=== PATIENT | male | born 1995 | race Caucasian/White ===

== ENCOUNTER 2018-07-04 12:12 | Observation (INO) | payer OTHER ==
--- NOTE | 2018-07-04 13:13 | ED ---
Abdominal Pain/Male - HPI Summary HPI Summary: Pt is a 23 y/o male who presents to the ED c/o abdominal pain. He woke up at 3: 00 this morning with lower abdominal pain, rated 6/10 in severity. Since then the pain has been fluctuating in severity but is always present. Pt reports having a normal BM early this morning. He went to [facility] this morning and was sent here for having a high WBC of 15.6. Pt also notes mild congestion, but denies any fever, chills, N/V, cough, or urinary symptoms. He has a normal appetite. Pt has not taken any OTC medications for his sx. He denies a PSHx of appendectomy. - History of Current Complaint Chief Complaint: EDAbdPain Stated Complaint: ABD PAIN Time Seen by Provider: 07/04/18 12:57 Hx Obtained From: Patient Onset/Duration: Sudden Onset, Lasting Hours - 3:00 today, Still Present Timing: Intermittent Severity Currently: Moderate Pain Intensity: 6 Pain Scale Used: 0-10 Numeric Location: Other - lower abdomen Radiates: No Aggravating Factor(s): Nothing Alleviating Factor(s): Nothing Associated Signs And Symptoms: Negative: Cough, Urinary Symptoms, Decreased Appetite, Nausea, Vomiting - Allergies/Home Medications Allergies/Adverse Reactions: Allergies Allergy/AdvReac Type Severity Reaction Status Date / Time No Known Allergies Allergy Verified 07/04/18 12:20 PMH/Surg Hx/FS Hx/Imm Hx Endocrine/Hematology History: Denies: Hx Diabetes Cardiovascular History: Denies: Hx Hypertension Infectious Disease History: No Infectious Disease History: Denies: Traveled Outside the [place] in Last 30 Days - Family History Known Family History: Positive: Hypertension, Diabetes - Social History Alcohol Use: Weekly Hx Substance Use: No Substance Use Type: Reports: None Hx Tobacco Use: Yes Smoking Status (MU): Current Some Day Smoker - once a month Review of Systems Negative: Fever, Chills Positive: Other - mild congestion Negative: Cough Positive: Abdominal Pain. Negative: Vomiting, Nausea Genitourinary: Negative All Other Systems Reviewed And Are Negative: Yes Physical Exam - Summary Physical Exam Summary: GENERAL: Patient is a well-developed and nourished M who is lying comfortable in the stretcher. Patient is not in any acute respiratory distress. HEAD AND FACE: Normocephalic EYES: PERRLA, EOMI x 2. EARS: Hearing grossly intact. MOUTH: Oropharynx within normal limits. NECK: Supple, trachea is midline, no adenopathy, no JVD, no carotid bruit. CHEST: Symmetric, no tenderness at palpation LUNGS: Clear to auscultation bilaterally. No wheezing or crackles. CVS: Regular rate and rhythm, S1 and S2 present, no murmurs or gallops appreciated. ABDOMEN: Soft. Bowel sounds are normal. No abdominal abnormal pulsations. Mild tenderness to palpation inferior to umbilicus. EXTREMITIES: Full ROM in all major joints, no edema, no cyanosis or clubbing. NEURO: Alert and oriented x 3. No acute neurological deficits. Speech is normal and follows commands. SKIN: Dry and warm Triage Information Reviewed: Yes Vital Signs On Initial Exam: Initial Vitals Temp Pulse Resp BP Pulse Ox 97.9 F 83 20 155/83 98 07/04/18 12:18 07/04/18 12:18 07/04/18 12:18 07/04/18 12:18 07/04/18 12:18 Vital Signs Reviewed: Yes Diagnostics - Vital Signs Vital Signs Temp Pulse Resp BP Pulse Ox 07/04/18 12:18 97.9 F 83 20 155/83 98 - Laboratory Result Diagrams: 07/04/18 13:07 07/04/18 13:07 Lab Statement: Any lab studies that have been ordered have been reviewed, and results considered in the medical decision making process. - CT CT A/P CT Interpretation Completed By: Radiologist Summary of CT Findings: Findings consistent with appendicitis with thickening of the base of the cecum and a dilated appendix. ED physician reviewed radiology report. Re-Evaluation - Re-Evaluation First Eval Re-Evaluation Time: 16:00 Change: Unchanged Comment: Informed pt of CT results. Abdominal Pain Fem Course/Dx - Course Course Of Treatment: Pt is a 23 y/o male who presents to the ED c/o abdominal pain since 3:[address] A/P revealed Findings consistent with appendicitis with thickening of the base of the cecum and a dilated appendix. Workup was otherwise unremarkable. Pt will be admitted with a final dx of appendicitis. Case discussed with surgeon, Dr. Miguel. I discussed results with patient. The patient agrees with this plan. - Diagnoses Provider Diagnoses: Appendicitis - Provider Notifications Discussed Care Of Patient With: Claudy Miguel Time Discussed With Above Provider: 16:02 Instructed by Provider To: Admit As Inpatient - Dr. Miguel will see the pt in ED and admit him. Discharge - Sign-Out/Discharge Documenting (check all that apply): Patient Departure - Admit Patient Received Moderate/Deep Sedation with Procedure: No - Discharge Plan Condition: Stable Disposition: HOME - Billing Disposition and Condition Condition: STABLE Disposition: Home - Attestation Statements Document Initiated by Scribe: Yes Documenting Scribe: Beth Reyes Provider For Whom Vanessa is Documenting (Include Credential): Meche Peters MD Scribe Attestation: Beth Ortez, scribed for Meche Peters MD on 07/05/18 at 1815. Scribe Documentation Reviewed: Yes Provider Attestation: The documentation as recorded by the gloriaibBeth vu accurately reflects the service I personally performed and the decisions made by me, Meche Peters MD Status of Scribe Document: Viewed
[2018-07-04] MEDS ORDERED: NS 0.9% 1000 ML** 1,000 ML IV ONE (13:16)
[2018-07-04] MEDS ORDERED: Metoclopramide IV* 5 MG/ML 2 ML VIAL IV ONE (13:17)
[2018-07-04] MEDS ORDERED: Ketorolac INJ* 30 MG/ML 1 ML VIAL IV PUSH ONE (13:17)
[2018-07-04 13:27] LABS: ABS Basophils 0 10^3/ul (0-0.2); ABS Eosinophils 0.1 10^3/ul (0-0.6); ABS Lymphocytes 1.8 10^3/ul (1.0-4.8); ABS Monocytes 1.5 10^3/ul (0-0.8); ABS Neutrophils 10.7 10^3/ul (1.5-7.7); ABS Nucleated RBC 0 10^3/ul; Eosinophil % 0.9 %; Hematocrit 46 % (42-52); Hemoglobin 15.9 g/dl (14.0-18.0); Lymphocyte % 12.7 %; Mean Corpuscular HGB Conc 35 g/dl (31-36); Mean Corpuscular Hemoglobin 30 pg (27-31); Mean Corpuscular Volume 87 fL (80-94); Mean Platelet Volume 6.8 fL (7.4-10.4); Nucleated Red Blood Cells % 0.1; Platelet Count 241 10^3/ul (150-450); Red Blood Count 5.31 10^6/ul (4.00-5.40); Red Cell Distribution Width 14 % (10.5-15); White Blood Count 14.1 10^3/ul (3.5-10.8)
[2018-07-04 13:39] LABS: Albumin 4.7 g/dL (3.2-5.2); Albumin/Globulin Ratio 1.6 (1-3); BUN/Creatinine Ratio 24.7 (8-20); C Reactive Protein 9.49 mg/L (<8.01); Calcium 9.8 mg/dL (8.6-10.3); EGFR African American 118.2 (>60); EGFR Non-African American 97.7 (>60); Globulin 2.9 g/dL (2-4); Potassium 3.9 mmol/L (3.5-5.0); Total Bilirubin 0.9 mg/dL (0.2-1.0); Total Protein 7.6 g/dL (6.4-8.9)
[2018-07-04] MEDS ORDERED: Iohexol 300* (CONTRAST) 10 ML SDV IV ONE (14:26)
[2018-07-04 15:03] LABS: Urine Appearance Clear; Urine Bilirubin Negative (Negative); Urine Blood Negative (Negative); Urine Color Straw; Urine Glucose Negative (Negative); Urine Ketones Negative (Negative); Urine Nitrite Negative (Negative); Urine Protein Negative (Negative); Urine Specific Gravity 1.011 (1.010-1.030); Urine Urobilinogen Negative (Negative)
[2018-07-04] MEDS ORDERED: ceFOXitin 2 GM IVPREMIX* 2 GM/50 ML BAG ONE (17:23)
--- NOTE | 2018-07-04 18:02 | HP ---
CC: [facility] at [facility] * PREOPERATIVE HISTORY AND PHYSICAL: DATE OF ADMISSION: 07/04/18 This patient was seen in the [facility] Emergency Department on 07/04/18. ATTENDING SURGEON: Dr. Claudy Miguel * (dictated by Teagan Casper NP). CHIEF COMPLAINT: Right lower quadrant abdominal pain. HISTORY OF PRESENT ILLNESS: The patient is a 23-year-old male who is a [employer] student; he had the onset of lower abdominal pain that woke him up at 3 o'clock this morning. He went to [facility] where blood was drawn and an elevated white blood cell count was noted and he was sent to the emergency department. He denied any nausea, vomiting, diarrhea, or constipation. He had a formed bowel movement this morning; he denies any dysuria or fever or chills. He has had no previous surgery. CAT scan of the abdomen and pelvis in the emergency department was consistent with acute appendicitis, thickening at the base of the cecum and dilated appendix. White blood cell count was 14.1 and electrolytes were within normal limits. He last ate solid food yesterday and the last fluids were oral contrast for the CAT scan around 3 p.m. today. PAST MEDICAL HISTORY: Generally healthy. He states that in the past, he has had mildly elevated cholesterol, but has never had to take any prescription medications for that. He has never had a blood transfusion and no previous anesthesia complications. PAST SURGICAL HISTORY: Otis teeth extraction. MEDICATIONS: None. ALLERGIES: No known drug allergies. FAMILY HISTORY: Parents are alive and well. The family history is positive for diabetes and heart disease in his grandparents. 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 He occasionally smokes cigarettes. He drinks alcohol socially; his parents live in [place]. REVIEW OF SYSTEMS: Constitutional: No fevers, chills, excessive fatigue, or weight loss. Endocrine: No diabetes or thyroid disease. Respiratory: No shortness of breath or chronic cough. He does workout regularly. Cardiovascular: No anginal chest pain or palpitations. Gastrointestinal: As described in history of present illness. Genitourinary: No dysuria. Musculoskeletal: No joint or back pain. Neurologic: No headaches or blurred vision or history of seizures. General: No history of deep vein thrombosis or pulmonary embolism. No previous anesthesia complications. No blood transfusions. PHYSICAL EXAMINATION GENERAL SURVEY: The patient is a 23-year-old male, well developed, well nourished, in no acute distress. VITAL SIGNS: Height 5 feet 10 inches, weight 166 pounds, body mass index 23.8. Blood pressure 160/93, heart rate ranges from 80 to 100, respiratory rate 18, temperature 98.7, O2 saturation on room air 100%. HEENT: Benign. NECK: Supple. No cervical lymphadenopathy. LUNGS: Breath sounds bilaterally clear and equal. HEART: Regular rate and rhythm. No murmurs or rubs appreciated. ABDOMEN: Quiet, flat, nondistended. Tender in the right lower quadrant with deep palpation. No guarding. No peritoneal signs. No palpable masses or organomegaly. GENITALIA: Exam is deferred. RECTAL: Exam is deferred. EXTREMITIES: Full range of motion. NEUROLOGIC: Alert and oriented x3. SKIN: Warm, dry, intact. IMPRESSION: Acute appendicitis. PLAN: Per Dr. Miguel to the operating room this evening for laparoscopic appendectomy. The risks, benefits and usual postoperative recovery were discussed with the patient. His questions were answered and verbal consent was obtained. TIME SPENT: Sixty minutes with greater than 50% in [id number], history taking , patient counseling, and coordination of care. LAZARO CASPER NP [id number]/[facility] #: [id number] NIKA
[2018-07-04] MEDS ORDERED: Midazolam* 1 MG/ML 5 ML VIAL (5 MG) ONE (18:37)
[2018-07-04] MEDS ORDERED: Bupivacaine 0.5% W/EPI SDV* 30 ML VIAL ONE (18:39)
[2018-07-04] MEDS ORDERED: Rocuronium* 10 MG/ML VIAL ONE (18:42)
[2018-07-04] MEDS ORDERED: fentaNYL* 50 MCG/ML 2 ML VIAL (100 MCG VIAL) ONE ×2 (18:42→20:24)
[2018-07-04] MEDS ORDERED: Dexamethasone IV* 4 MG/ML 1 ML (4 MG) ONE (18:52)
[2018-07-04] MEDS ORDERED: Ondansetron INJ* 2 MG/ML VIAL ONE (19:11)
[2018-07-04] MEDS ORDERED: Ketorolac INJ* 30 MG/ML 1 ML VIAL ONE (19:12)
[2018-07-04] MEDS ORDERED: fentaNYL* 50 MCG/ML 2 ML VIAL (100 MCG VIAL) IV PRN (19:18)
[2018-07-04] MEDS ORDERED: HYDROmorphone INJ1* 1 MG/ML SYRINGE IV PRN (19:18)
[2018-07-04] MEDS ORDERED: Ondansetron INJ* 2 MG/ML VIAL IV PRN ×2 (19:18→19:27)
[2018-07-04] MEDS ORDERED: Naloxone* 0.4 MG/ML 1 ML VIAL IV PRN (19:18)
[2018-07-04] MEDS ORDERED: DiMENhydriNATE IV* 50 MG/ML VIAL IV PUSH PRN (19:18)
[2018-07-04] MEDS ORDERED: oxyCODONE/Acetamin 5/325 MG* TAB PO PRN (19:18)
[2018-07-04] MEDS ORDERED: Neostigmine Methylsulfate* 3 MG/3 ML SYRINGE ONE (19:21)
[2018-07-04] MEDS ORDERED: Glycopyrrolate IV* 0.2 MG/ML 1 ML VIAL ONE (19:21)
[2018-07-04] MEDS ORDERED: Ketorolac INJ* 30 MG/ML 1 ML VIAL IV PRN (19:27)
--- NOTE | 2018-07-04 19:32 | BRIEFOPN ---
Brief Operative Note - Surgery Procedures: PREOP/POSTOP DX: ACUTE APPENDICITIS PROC: LAP APPENDECTOMY SURG: MECENAS ASSIST: NONE ANES: GET; SANITO EBL: MIN IVF: CRYSTALLOID SPEC: APPENDIX DRAIN: NONE COMPL: NONE COND: STABLE TO RR; EXTUBATED. FIND: EARLY ACUTE APPENDICITIS.
[2018-07-04] MEDS ORDERED: Lactated Ringers 1000 ML Bag* 1,000 ML IV SCH (20:00)
[2018-07-04] MEDS: oxyCODONE/Acetamin 5/325 MG* TAB PO PRN (21:54)
--- NOTE | 2018-07-04 23:57 | OP ---
CC: [facility] * DATE OF OPERATION: 07/04/18 - ROOM #331 DATE OF : 89 SURGEON: Claudy Miguel MD AGRICULTURE INSTRUCTOR: None. ANESTHESIOLOGIST: Dr. Clarke. ANESTHESIA: General endotracheal. PRE-OP DIAGNOSIS: Acute appendicitis. POST-OP DIAGNOSIS: Acute appendicitis. OPERATIVE PROCEDURE: Laparoscopic appendectomy. ESTIMATED BLOOD LOSS: Minimal. IV FLUIDS: 1.8 L crystalloid. SPECIMENS: Appendix. DRAINS: None. COMPLICATIONS: None. COUNTS: Instrument, needle, sponge counts were correct. DESCRIPTION OF PROCEDURE: The patient was brought to the operating room and placed on the table supine. Sequential compression devices were placed in both lower extremities. General anesthesia was administered. His abdomen was prepped and draped in the usual sterile fashion. He received appropriate intravenous antibiotics. A time-out was performed. Local anesthetic was infiltrated into the skin and soft tissues prior to making each incision. Entry into the abdomen was through a transumbilical vertical incision using an open technique. After accessing the peritoneal cavity, carbon dioxide was insufflated to a pressure of 15 mmHg. Under direct visualization, 5-mm trocars were placed in the suprapubic, midline and left lower quadrant. The appendix was readily visualized extending from the right lower quadrant down to the central portion of the pelvis. There was some harper, slightly murky fluid in the pelvis. There was no pus. The appendix did not appear to be gangrenous or perforated. The appendix was elevated, a window created in the appendix mesentery at the base. The appendix was divided from the cecum with the Endo KEYON stapler using a harper cartridge. The mesentery of the appendix was divided with the Endo KEYON stapler with a almendarez cartridge. The appendix was retrieved using endoscopic retrieval bag through the umbilical site. Inspection revealed that there was some oozing along the staple line and peritoneum adjacent to the cecum, which was controlled with endoscopic clip placement. The fluid in the pelvis was suctioned from the pelvis. At this point, the ports were removed under direct visualization and carbon dioxide was released. The umbilical wound was closed with 0 Vicryl to approximate the fascia. The skin incisions were closed with 4- 0 Monocryl in subcuticular fashion and DermaFlex was applied to all the wounds. The patient was awakened uneventfully, extubated and transferred to Recovery in stable condition. [id number]/[facility] #: [id number] NIKA
[2018-07-05] MEDS: oxyCODONE/Acetamin 5/325 MG* TAB PO PRN ×2 (05:23→10:47)
[2018-07-05 08:13] VITALS: BP 111/55
--- NOTE | 2018-07-05 11:35 | DS ---
AMENDED REPORT NOW INCLUDES COSIGNER DESIGNATION CC: [facility] * DATE OF ADMISSION: 07/04/2018. DATE OF DISCHARGE: 07/05/2018. ATTENDING SURGEON: Dr. Claudy Miguel * (BROCK Hoang dictating). HOSPITAL COURSE: Please refer to admission history and physical and operative note for details. Briefly, the patient was taken to the operating room on 07/[address] Miguel and underwent laparoscopic appendectomy for acute nonruptured appendicitis. He has had an otherwise uneventful postoperative course and was tolerating clear liquids well the morning of discharge and with good pain control. Vital signs the morning of discharge: Temperature 98.4, blood pressure 111/55, pulse 79, respirations 16, room air saturation 98 percent. Abdominal exam: Laparoscopic incision sites clean and dry under derma+flex skin glue. Abdomen is soft with mild incisional tenderness and mild right lower quadrant tenderness. Instructions were reviewed regarding wound care, diet, and activity. Written instructions were also given. He will contact our office for follow-up in seven to ten days. A prescription for [place] 5/325 was provided through the hospital pharmacy. BROCK HOANG [id number]/[facility] #: [id number] [facility]
== END 2018-07-05 11:00 | disposition home or self-care (01) ==
LOC: ED 12:12 → OR 17:15 → SSU 21:18
PROVIDERS: ADMIT Surgery; ATTEND Surgery
DX: K35.80 Unspecified acute appendicitis (principal); R10.30 Lower abdominal pain, unspecified; Z72.0 Tobacco use
CPT/HCPCS: 36415; 74177; 80053; 81003; 83605; 83690; 85025; 86140; 87040; 88304; 96361; 96374; 96375; 96376; 99285; A9270-GY; G0378; J0694; J1100; J1885; J2250; J2405; J2710; J2765; J3010; Q9967